=== PATIENT | male | born 1995 | race Caucasian/White ===

== ENCOUNTER 2016-05-28 13:33 | Emergency (ER) | payer SELFPAY ==
[~2016-05-28] VITALS: Ht 162.6 cm; Wt 63.5 kg
[~2016-05-28 13:33] MED LIST: CIPR500T4 PO; Z.0.NO CURRENT MEDS
[2016-05-28 13:35] VITALS: BP 137/71; PULSE 82; RESP 12; TEMP 98.1; O2SAT 98
--- NOTE | 2016-05-28 15:23 | PD ---
HPI Chief Complaint: Injury Time Seen by Provider: 15:15 Travel History International Travel<30 days: No Contact w/Intl Traveler<30days: No Traveled to known affect area: No History of Present Illness HPI Patient is a 20-year-old male presenting with left great toe injury. He states earlier this morning he was using a weed eater and a rock hit into his soft tissue and cause the toenail to rip. Pain is mild to moderate. Bleeding has stopped and he has some swelling underneath the toenail he states. He states the toenail is completely off. He denies weakness, paresthesia and inability to bear weight. He denies loss of range of motion. Last tetanus vaccine was less than 5 years. Of note the patient dropped a 80 pound log on the second toe x-ray one week ago but has been weightbearing. PFSH Past Medical History Diminished Hearing: No Immunizations Current: Yes Past Surgical History Other Surgery: Yes (MULTIPLE SURGERIES TO BACK 1 YR OLD FOR "INFECTION POCKET IN BACK") Social History Alcohol Use: Yes (OCC) Tobacco Use: Yes (1PPD) Allergies-Medications (Allergen,Severity, Reaction): Coded Allergies: No Known Allergies (Unverified , 05/28/16) Reported Meds & Prescriptions Reported Meds & Active Scripts Active Cipro (Ciprofloxacin HCl) 500 Mg Tab 500 Mg PO BID 14 Days Reported No Current Meds (Miscellaneous Medication) Misc Review of Systems General / Constitutional: No: Fever Musculoskeletal: Positive: Other (see the history of present illness) Skin: Positive Other (see the history of present illness) Neurologic: No: Weakness, Focal Abnormalities, Paresthesia, Sensory Disturbance Physical Exam Narrative GENERAL: Well-developed and well-nourished adult male in no acute distress. SKIN: Warm and dry. Good turgor without tenting. HEAD: Normocephalic and atraumatic. CARDIOVASCULAR: Regular rate and rhythm without murmurs, rubs, clicks or gallops. Dorsalis pedis and posterior tibial pulses 2+ bilaterally. Capillary refill less than 2 seconds distal tip of left great toe. RESPIRATORY: Clear to auscultation bilaterally with symmetrical rise and fall, no distress or use of accessory muscles. MUSCULOSKELETAL: Left great toe has injury to the lateral aspect of the nail, there is a subungual hematoma and the nail does appear to be loosely adhered laterally. No active bleeding. Patient has no range of motion in the toe, mildly tender. No gait disturbances. Patient freely moving all four extremities spontaneously. Extremities without clubbing or cyanosis. No obvious deformities. NEUROLOGIC: CN II-XII grossly intact. Awake and alert. Motor grossly within normal limits. Sensation intact distal tip of left great toe. Normal speech. PSYCHIATRIC: Appropriate mood and affect; insight and judgment normal. Data Data Last Documented VS Vital Signs Date Time Temp Pulse Resp B/P Pulse Ox O2 Delivery O2 Flow Rate FiO2 05/28/16 13:35 98.1 82 12 137/71 98 Room Air Orders Toe (Min 2vws) (05/28/16 15:21) Ice/Cold Pack (05/28/16 15:21) Bupivacaine Pf 0.5% Inj (Marcaine Pf 0.5 (05/28/16 15:30) Lidocaine 1% Inj (50 Ml) (Xylocaine 1% I (05/28/16 15:30) MDM Medical Decision Making Medical Screen Exam Complete: Yes Emergency Medical Condition: Yes Differential Diagnosis Toe fracture versus toe sprain versus toe contusion versus nailbed injury versus subungual hematoma Narrative Course Patient's 20-year-old male presenting with 2 great left toe injuries in the last week. One was early this morning. He did appear to suffer a nail bed injury at that time. Tetanus vaccine already up-to-date. I slating the patient that would need to perform a digital block to clean this and inspected further and likely repair the nail bed. Given he said to traumas to the area x- ray is also indicated which was ordered. Patient expressed mild disagreement with this but appeared to understand. While waiting for x-ray I noticed the patient was no longer in his room. Diagnosis Primary Impression: Left against medical advice Condition: Stable John Mcallister III May 28, 2016 15:23
[2016-05-28] MEDS ORDERED: LIDOCAINE HCL 1% 50 ML VIAL INFIL ONE (15:30)
[2016-05-28] MEDS ORDERED: BUPIVACAINE HCL PF 0.5% 10 ML VIAL INFIL ONE (15:30)
[2016-05-29] MEDS ORDERED: CEPH-460 PO (00:49)
[2016-05-29] MEDS ORDERED: HYDR-3533 PO (00:49)
== END 2016-05-28 17:35 | disposition left against medical advice (07) ==
LOC: NEPB 13:33
DX: M79.675 Pain in left toe(s) (principal); F17.200 Nicotine dependence, unspecified, uncomplicated; Z53.20 Procedure and treatment not carried out because of patient's decision for unspecified reasons
CPT/HCPCS: 99283

== ENCOUNTER 2016-05-28 21:39 | Emergency (ER) | payer SELFPAY ==
[~2016-05-28] VITALS: Ht 162.6 cm; Wt 63.0 kg
[2016-05-28 21:40] VITALS: BP 119/71; PULSE 72; RESP 14; TEMP 97.9; O2SAT 99
[2016-05-28] MEDS ORDERED: LIDOCAINE HCL 1% PF 30 ML VIAL INFIL ONE (23:15)
--- NOTE | 2016-05-28 23:26 | PD ---
HPI Chief Complaint: Injury Time Seen by Provider: 23:00 Travel History International Travel<30 days: No Contact w/Intl Traveler<30days: No Traveled to known affect area: No History of Present Illness HPI 20-year-old male presents for examination of left great toe injury. He reports that 1 week ago he dropped a log on his toe and injured his left great toe. He sustained a avulsion to his left great toenail at the root as well as some subungual hematoma formation. He has been walking on it since then and performing normal activities of daily living. It has been painful. Today this morning at around noon he injured his toe again in which she was using a weed eater and hit a rock into his shoe which reaggravated his left great toe. The patient was seen here about this issue several hours ago but he left AMA prior to receiving x-ray and digital block. He now returns to have the workup completed. Last tetanus vaccination within 5 years. No other complaints. PFSH Past Medical History Diminished Hearing: No Immunizations Current: Yes Past Surgical History Other Surgery: Yes (MULTIPLE SURGERIES TO BACK 1 YR OLD FOR "INFECTION POCKET IN BACK") Social History Alcohol Use: Yes (OCC) Tobacco Use: Yes (1PPD) Allergies-Medications (Allergen,Severity, Reaction): Coded Allergies: No Known Allergies (Unverified , 05/28/16) Reported Meds & Prescriptions Reported Meds & Active Scripts Active Keflex (Cephalexin) 500 Mg Cap 500 Mg PO Q8H 7 Days Lortab (Hydrocodone-Acetaminophen) 5-325 Mg Tab 1 Tab PO Q6H PRN Review of Systems Musculoskeletal: Positive: Pain Skin: Positive Other (subungual hematoma formation, pain) Physical Exam Narrative GENERAL: Well-developed well-nourished male in no acute distress SKIN: Warm and dry. CARDIOVASCULAR: Regular rate and rhythm. No murmur appreciated. RESPIRATORY: No accessory muscle use. Clear to auscultation. Breath sounds equal bilaterally. Extremities: Examination reveals subungual hematoma left great toe. The nail is avulsed at the root with a jagged portion of the nail sticking out at the root. The nail was quite loose on the nail bed. Data Data Last Documented VS Vital Signs Date Time Temp Pulse Resp B/P Pulse Ox O2 Delivery O2 Flow Rate FiO2 05/28/16 21:40 97.9 72 14 119/71 99 Room Air Orders Toe (Min 2vws) (05/28/16 ) Lidocaine Pf 1% Inj (Xylocaine-Mpf 1% In (05/28/16 23:15) Lidocaine Pf 1% Inj (Xylocaine-Mpf 1% In (05/29/16 00:45) Wound Care (05/29/16 00:56) Acetamin-Hydrocod 325-5 Mg ([place] 5-325 (05/29/16 01:00) Ondansetron Odt (Zofran Odt) (05/29/16 01:00) Cephalexin (Keflex) (05/29/16 01:00) MDM Medical Decision Making Medical Screen Exam Complete: Yes Emergency Medical Condition: Yes Medical Record Reviewed: Yes Interpretation(s) FINDINGS: Normal bone density. There is a subtle nondisplaced fracture of the first distal phalangeal tuft identified. Mild soft tissue swelling. Differential Diagnosis Toenail avulsion, subungual hematoma, old nail bed laceration, toe fracture Narrative Course 20-year-old male injured his left great toe 1 week ago dropping a log on it. He sustained a partial toenail avulsion and subungual hematoma. He reaggravated today when a rock hit his shoe. Examination reveals that the toenail has been lifted off of the nail bed secondary to a subungual hematoma one week ago. The plan is for x-ray. Digital block with will be performed and the toenail will be removed. X-ray imaging reveals subtle nondisplaced fracture. The nail was removed successfully. There was some subungual bleeding as well as mild bleeding currently with some damage and generalized oozing from the underlying nailbed but no repairable wound. Local wound care provided. The patient will be discharged with prescription antibiotics and pain medication. Discussed signs and symptoms of infection noted work returning to the emergency room. Procedures Procedure Narrative Toenail removal: The left great toe is prepped with Betadine. Digital block was performed utilizing 1% lidocaine. The toenail was lifted off of the nail bed utilizing blunt dissection. There was some generalized oozing of blood. The patient tolerated procedure well. Diagnosis Primary Impression: Toe fracture, left Qualified Code: S92.425A - Closed nondisplaced fracture of distal phalanx of left great toe, initial encounter Additional Impressions: Toenail avulsion Qualified Code: S91.209A - Toenail avulsion, initial encounter Subungual hematoma of toe of left foot Qualified Code: S90.222A - Subungual hematoma of toe of left foot, initial encounter Additional Instructions: Wash the area gently with soap and water and apply antibiotic cream and clean bandages daily. Take the medication as prescribed. Monitor for any signs of infection such as increasing redness around the wound, red streaks up the leg, fevers which would warrant return to the emergency room. Otherwise follow-up with primary care physician in one week. The nail will grow back over the course of the next 12-18 months. Med/Other Pt SpecificInfo: Prescription(s) given, Wound Care Scripts Cephalexin (Keflex)500 Mg [id number] Mg PO Q8H 7 Days Ref 0 Prov:Howie Redding MD 05/29/16 Hydrocodone-Acetaminophen (Lortab)5-325 Mg Tab1 Tab PO Q6H PRN (PAIN) #20 TAB Ref 0 Prov:Howie Redding MD 05/29/16 Disposition: 01 DISCHARGE HOME Condition: Stable Kyle Graves May 28, 2016 23:26
--- NOTE | 2016-05-28 23:57 | RADRPT ---
EXAM DATE/TIME: 05/28/2016 23:36 [facility] COMPARISON: No previous studies available for comparison. INDICATIONS : Patient complains of great toe pain, left foot, after dropping log onto foot earlier today. Pain in t uft of 1st digit. MEDICAL HISTORY : None. SURGICAL HISTORY : None. ENCOUNTER: Initial ACUITY: 1 day PAIN SCORE: 9/10 LOCATION: Left Foot, great toe. FINDINGS: Normal bone density. There is a subtle nondisplaced fracture of the first distal phalangeal tuft iden tified. Mild soft tissue swelling. CONCLUSION: First distal phalanx fracture. Jean-Claude Mccann MD on May 28, 2016 at 23:55 Board Certified Radiologist. This report was verified electronically.
[2016-05-29] MEDS ORDERED: LIDOCAINE HCL 1% PF 30 ML VIAL INFIL ONE (00:45)
[2016-05-29] MEDS ORDERED: HYDR-3533 PO (00:49)
[2016-05-29] MEDS ORDERED: CEPH-460 PO (00:49)
[2016-05-29] MEDS ORDERED: CEPHALEXIN MONOHYDRATE 500 MG CAP PO ONE (01:00)
[2016-05-29] MEDS ORDERED: ACETAMINOPHEN/HYDROcodone 325 MG/5 MG TAB PO ONE (01:00)
[2016-05-29] MEDS ORDERED: ONDANSETRON ODT 4 MG TAB PO ONE (01:00)
== END 2016-05-29 01:13 | disposition home or self-care (01) ==
LOC: NEPB 21:39
DX: S92.425A Nondisplaced fracture of distal phalanx of left great toe, initial encounter for closed fracture (principal); S91.209A Unspecified open wound of unspecified toe(s) with damage to nail, initial encounter; S90.222A Contusion of left lesser toe(s) with damage to nail, initial encounter; F17.200 Nicotine dependence, unspecified, uncomplicated; W20.8XXA Other cause of strike by thrown, projected or falling object, initial encounter
CPT/HCPCS: 11730; 73660

== ENCOUNTER 2017-06-30 00:26 | Emergency (ER) | payer SELFPAY ==
[~2017-06-30] VITALS: Ht 162.6 cm; Wt 52.0 kg
[~2017-06-30 00:26] MED LIST changes: +CEPH-460 PO; -CIPR500T4 PO; +HYDR-3533 PO; -Z.0.NO CURRENT MEDS
[2017-06-30 00:33] VITALS: BP 140/87; PULSE 77; RESP 20; TEMP 97.8; O2SAT 99
[2017-06-30 00:55] VITALS: RESP 18; O2SAT 99
[2017-06-30 01:16] LABS: AUTOMATED NEUTROPHIL # 10.9 TH/MM3 (1.8-7.7); BASOPHIL # 0.3 TH/MM3 (0-0.2); BASOPHIL % 2.5 % (0.0-2.0); EOSINOPHIL # 0.2 TH/MM3 (0-0.4); EOSINOPHIL % 1.4 % (0.0-4.0); HEMOGLOBIN 16.3 GM/DL (13.0-17.0); LYMPHOCYTE # 1.2 TH/MM3 (1.0-4.8); MEAN CELL VOLUME 86.8 FL (80.0-100.0); MEAN CORPUSCULAR HEMOGLOBIN 30.2 PG (27.0-34.0); MEAN CORPUSCULAR HGB CONC 34.8 % (32.0-36.0); MEAN PLATELET VOLUME 8.9 FL (7.0-11.0); MONO % 7.7 % (0.0-8.0); MONOCYTE # 1.1 TH/MM3 (0-0.9); NEUT % 79.4 % (16.0-70.0); PLATELET COUNT 216 TH/MM3 (150-450); RED BLOOD COUNT 5.41 MIL/MM3 (4.50-5.90); RED CELL DISTRIBUTION WIDTH 13.1 % (11.6-17.2); WHITE BLOOD COUNT 13.7 TH/MM3 (4.0-11.0)
[2017-06-30 01:23] LABS: CHLORIDE 103 MEQ/L (98-107); SODIUM (NA) 138 MEQ/L (136-145)
[2017-06-30 01:26] LABS: CALCIUM 8.7 MG/DL (8.5-10.1)
[2017-06-30 01:27] LABS: ALBUMIN 4.2 GM/DL (3.4-5.0); BICARBONATE 26.7 MEQ/L (21.0-32.0); BLOOD UREA NITROGEN 20 MG/DL (7-18); GLUCOSE,RANDOM 98 MG/DL (74-106)
[2017-06-30 01:30] LABS: ALT (GPT) 19 U/L (12-78); AST (GOT) 20 U/L (15-37); CREATININE 0.91 MG/DL (0.60-1.30); GLOMERULAR FILTRATION RATE 102 ML/MIN (>89)
[2017-06-30 01:32] LABS: TOTAL BILIRUBIN ADULT 0.8 MG/DL (0.2-1.0); TOTAL PROTEIN 7.8 GM/DL (6.4-8.2)
[2017-06-30 01:33] LABS: ALKALINE PHOSPHATASE 94 U/L (45-117)
[2017-06-30 02:30] VITALS: BP 138/78; PULSE 74; RESP 18; O2SAT 99
[2017-06-30 03:01] LABS: BILIRUBIN, URINE NEG (NEG); BLOOD, URINE TRACE (NEG); GLUCOSE,URINE NEG (NEG); KETONE, URINE 40 mg/dL (NEG); NITRITE,URINE NEG (NEG); URINE LEUKOCYTE ESTERASE NEG (NEG)
[2017-06-30 03:19] LABS: URINE COLOR YELLOW (YELLW/STRAW)
[2017-06-30 03:20] LABS: AMORPHOUS SEDIMENT, URINE LARGE; MUCUS URINE MOD /lpf (OCC); RBC, URINE 0-3 /hpf (0-3)
[2017-06-30 03:21] LABS: SQUAMOUS EPITHELIAL CELL URINE 0-5 /hpf (0-5)
== END 2017-06-30 02:38 | disposition left against medical advice (07) ==
LOC: PHED 00:26
DX: Z53.21 Procedure and treatment not carried out due to patient leaving prior to being seen by health care provider (principal)
CPT/HCPCS: 80053; 81001; 83690; 85025; 99281

== ENCOUNTER 2017-10-06 07:24 | Emergency (ER) | payer SELFPAY ==
[~2017-10-06] VITALS: Ht 165.1 cm; Wt 63.5 kg
[2017-10-06 07:32] VITALS: PULSE 56; RESP 22; TEMP 96.2; O2SAT 98
[2017-10-06 07:40] VITALS: BP 135/79; PULSE 54; RESP 24; O2SAT 100
--- NOTE | 2017-10-06 07:56 | PD ---
HPI Chief Complaint: GI Complaint Time Seen by Provider: 07:45 Travel History International Travel<30 days: No Contact w/Intl Traveler<30days: No Traveled to known affect area: No History of Present Illness HPI This patient complains of pain in his right side and right lower quadrant. Duration 45 minutes. The pain is severe. He arrives writhing in pain. He has history of kidney stone. Denies other medical problems. No alleviating factors. No exacerbating factors. No injury. No vomiting or diarrhea. PFSH Past Medical History Diminished Hearing: No Immunizations Current: Yes Past Surgical History Other Surgery: Yes (MULTIPLE SURGERIES TO BACK 1 YR OLD FOR "INFECTION POCKET IN BACK") Social History Alcohol Use: Yes (OCC) Tobacco Use: Yes (1PPD) Substance Use: No Allergies-Medications (Allergen,Severity, Reaction): Coded Allergies: No Known Allergies (Unverified Adverse Reaction, Unknown, 06/30/17) Reported Meds & Prescriptions Reported Meds & Active Scripts Active No Active Prescriptions or Reported Medications Review of Systems General / Constitutional: No: Fever Eyes: No: Visual changes HENT: No: Headaches Cardiovascular: No: Chest Pain or Discomfort Respiratory: No: Shortness of Breath Gastrointestinal: Positive: Abdominal Pain Genitourinary: Positive: Flank Pain, No: Dysuria Musculoskeletal: No: Pain Skin: No Rash Neurologic: No: Weakness Psychiatric: No: Depression Endocrine: No: Polydipsia Hematologic/Lymphatic: No: Easy Bruising Physical Exam Narrative GENERAL: Well-nourished, well-developed patient with severe right sided abdominal pain . SKIN: Focused skin assessment reveals no rash and nodules. Skin is Warm and dry. HEAD: Atraumatic. Normocephalic. EYES: Pupils equal and round. No scleral icterus. No injection or drainage. ENT: No nasal bleeding or discharge. Mucous membranes pink and moist. NECK: Trachea midline. No JVD. CARDIOVASCULAR: Regular rate and rhythm. No murmur appreciated. RESPIRATORY: No accessory muscle use. Clear to auscultation. Breath sounds equal bilaterally. GASTROINTESTINAL: Abdomen soft, non-tender, nondistended. Hepatic and splenic margins not palpable. MUSCULOSKELETAL: No obvious deformities. No clubbing. No cyanosis. No edema. NEUROLOGICAL: Awake and alert. No obvious cranial nerve deficits. Motor grossly within normal limits. Normal speech. PSYCHIATRIC: Appropriate mood and affect; insight and judgment normal. Data Data Last Documented VS Vital Signs Date Time Temp Pulse Resp B/P (MAP) Pulse Ox O2 Delivery O2 Flow Rate FiO2 10/06/17 07:40 54 24 135/79 (97) 100 Room Air 10/06/17 07:32 96.2 Orders Orders Complete Blood Count With Diff (10/06/17 07:49) Basic Metabolic Panel (Bmp) (10/06/17 07:49) Urinalysis - C+S If Indicated (10/06/17 07:49) Ct Abd/Pel W/O Iv Contrast (10/06/17 07:49) Iv Access Insert/Monitor (10/06/17 07:49) Ketorolac Inj (Toradol Inj) (10/06/17 08:00) Sodium Chloride 0.9% Flush (Ns Flush) (10/06/17 08:00) Hydromorphone Pf Inj (Dilaudid Pf Inj) (10/06/17 08:00) Prochlorperazine Inj (Compazine Inj) (10/06/17 08:00) Hydromorphone Pf Inj (Dilaudid Pf Inj) (10/06/17 07:57) Urine Culture (10/06/17 07:55) Labs Laboratory Tests Test 10/06/17 07:55 White Blood Count 8.8 TH/MM3 Red Blood Count 5.34 MIL/MM3 Hemoglobin 16.0 GM/DL Hematocrit 46.7 % Mean Corpuscular Volume 87.5 FL Mean Corpuscular Hemoglobin 29.9 PG Mean Corpuscular Hemoglobin Concent 34.2 % Red Cell Distribution Width 13.9 % Platelet Count 218 TH/MM3 Mean Platelet Volume 9.7 FL Neutrophils (%) (Auto) 60.6 % Lymphocytes (%) (Auto) 27.1 % Monocytes (%) (Auto) 8.6 % Eosinophils (%) (Auto) 2.6 % Basophils (%) (Auto) 1.1 % Neutrophils # (Auto) 5.3 TH/MM3 Lymphocytes # (Auto) 2.4 TH/MM3 Monocytes # (Auto) 0.8 TH/MM3 Eosinophils # (Auto) 0.2 TH/MM3 Basophils # (Auto) 0.1 TH/MM3 CBC Comment DIFF FINAL Differential Comment Urine Color YELLOW Urine Turbidity CLEAR Urine pH 6.0 Urine Specific [place] 1.028 Urine Protein 100 mg/dL Urine Glucose (UA) NEG mg/dL Urine Ketones NEG mg/dL Urine Occult Blood MOD Urine Nitrite NEG Urine Bilirubin NEG Urine Urobilinogen 0.2 MG/DL Urine Leukocyte Esterase NEG Urine RBC /hpf Urine WBC 9 /hpf Urine Bacteria FEW /hpf Urine Mucus MANY /lpf Microscopic Urinalysis Comment CULTURE INDICATED Blood Urea Nitrogen 13 MG/DL Creatinine 1.13 MG/DL Random Glucose 145 MG/DL Calcium Level 9.1 MG/DL Sodium Level 140 MEQ/L Potassium Level 3.7 MEQ/L Chloride Level 110 MEQ/L Carbon Dioxide Level 18.7 MEQ/L Anion Gap 11 MEQ/L Estimat Glomerular Filtration Rate 80 ML/MIN MDM Medical Decision Making Medical Screen Exam Complete: Yes Emergency Medical Condition: Yes Medical Record Reviewed: Yes Differential Diagnosis Kidney stone, appendicitis, colitis Narrative Course I have reviewed the patient's electronic medical record. Patient was found to have a 2 mm nonobstructing stone in 2012, I reviewed his CT scan IV placed and labs sent Gave him a dose of Dilaudid and Compazine and Toradol CT of abdomen and pelvis shows no stone currently. There is a tiny speck calcification of unclear significance but I feel this is an incidental finding most likely Urinalysis shows hematuria without infection On recheck the patient feels fine he is up walking around and feeling well. He spontaneously urinates without difficulty I think likely he had a kidney stone but passed it before the CT was taken. In any event he is stable for outpatient family physician and/or urology follow- up Diagnosis Primary Impression: Acute flank pain Additional Impression: Hematuria Qualified Codes: R31.9 - Hematuria, unspecified Additional Instructions: The patient was advised to follow up with their physician and return if they worsen. Med/Other Pt SpecificInfo: Other Scripts No Active Prescriptions or Reported Meds Disposition: 01 DISCHARGE HOME Condition: Stable Bowen Guzman MD Oct 06, 2017 07:56
[2017-10-06] MEDS ORDERED: HYDROmorphone HCL PF 2 MG/ML VIAL ONE (07:57)
[2017-10-06] MEDS ORDERED: HYDROmorphone HCL PF 1 MG/ML VIAL IV PUSH ONE (08:00)
[2017-10-06] MEDS ORDERED: KETOROLAC TROMETHAMINE 30 MG/ML (IVP) VIAL IV PUSH ONE (08:00)
[2017-10-06] MEDS ORDERED: PROCHLORPERAZINE INJ 10 MG/2 ML VIAL IV PUSH ONE (08:00)
[2017-10-06] MEDS ORDERED: SODIUM CHLORIDE 0.9% FLUSH 10 ML FLUSH IVF PRN (08:00)
[2017-10-06 08:21] LABS: AUTOMATED NEUTROPHIL # 5.3 TH/MM3 (1.8-7.7); BASOPHIL # 0.1 TH/MM3 (0-0.2); BASOPHIL % 1.1 % (0.0-2.0); EOSINOPHIL # 0.2 TH/MM3 (0-0.4); EOSINOPHIL % 2.6 % (0.0-4.0); HEMATOCRIT 46.7 % (39.0-51.0); LYMPH % 27.1 % (9.0-44.0); LYMPHOCYTE # 2.4 TH/MM3 (1.0-4.8); MEAN CELL VOLUME 87.5 FL (80.0-100.0); MEAN CORPUSCULAR HEMOGLOBIN 29.9 PG (27.0-34.0); MEAN CORPUSCULAR HGB CONC 34.2 % (32.0-36.0); MEAN PLATELET VOLUME 9.7 FL (7.0-11.0); MONO % 8.6 % (0.0-8.0); MONOCYTE # 0.8 TH/MM3 (0-0.9); NEUT % 60.6 % (16.0-70.0); PLATELET COUNT 218 TH/MM3 (150-450); RED BLOOD COUNT 5.34 MIL/MM3 (4.50-5.90); RED CELL DISTRIBUTION WIDTH 13.9 % (11.6-17.2); WHITE BLOOD COUNT 8.8 TH/MM3 (4.0-11.0)
[2017-10-06 08:38] LABS: BICARBONATE 18.7 MEQ/L (21.0-32.0); CALCIUM 9.1 MG/DL (8.5-10.1); CREATININE 1.13 MG/DL (0.60-1.30)
[2017-10-06 08:48] LABS: BLOOD, URINE MOD (NEG); GLUCOSE,URINE NEG (NEG); KETONE, URINE NEG (NEG); NITRITE,URINE NEG (NEG); URINE COLOR YELLOW (YELLW/STRAW); URINE LEUKOCYTE ESTERASE NEG (NEG)
[2017-10-06 08:58] LABS: BACTERIA, URINE FEW /hpf; MUCUS URINE MANY /lpf (OCC)
[2017-10-06 09:04] LABS: BILIRUBIN, URINE NEG (NEG)
--- NOTE | 2017-10-06 09:25 | RADRPT ---
EXAM DATE: 10/06/2017 8:56 AM EDT AGE/SEX: 22 years / Male INDICATIONS: Right flank and right lower quadrant pain. CLINICAL DATA: This is the patient's initial encounter. Patient reports that signs and symptoms have been present for 1 day and indicates a pain score of 8/10. MEDICAL/SURGICAL HISTORY: Renal calculi. . Back surgery as a child. RADIATION DOSE: 3.26 CTDI (mGy) COMPARISON: No prior [place] exams available for comparison. TECHNIQUE: Multiple contiguous axial images were obtained through the abdomen. Images were obtained using multiple row detector helical technique. Using dose reduction techniques, radiation dose was ke pt as low as reasonably achievable to obtain optimal diagnostic quality images. FINDINGS: Lower Lungs: The visualized lower lungs are clear. Liver: The liver has a homogeneous density without space-occupying lesion. There is no dilation of th e biliary tree. Spleen: Homogeneous density without enlargement. Pancreas: Unremarkable without mass or calcification. Kidneys: Normal in size and shape. No evidence of mass or hydronephrosis. Adrenal Glands: Unremarkable. Aorta: The aorta and proximal iliac vessels are grossly unremarkable without aneurysmal dilation. Bowel/Mesentery: The bowel loops are grossly unremarkable. The cecum and sigmoid colon have a normal configuration. Abdominal Wall: Intact. Retroperitoneum: No evidence of adenopathy in the retrocrural, para-aortic, or deep pelvic regions. Bladder: There is a miniscule potentially 2 mm calcification adjacent to the right bladder base, pot entially in the region of the distal ureter which itself is not clearly seen. I doubt this is a dista l ureteral stone, however that possibility is not entirely excluded. Reproductive Organs: No abnormal masses or calcifications seen. Inguinal: The inguinal region is unremarkable without evidence of adenopathy. Bony Structures: Unremarkable. CONCLUSION: 1. No evidence of kidney stone or hydronephrosis. 2. Miniscule right pelvic calcification, not clearly within distal ureter 3. Otherwise focally unremarkable noncontrast CT appearance. Electronically signed by: John Mace MD 10/06/2017 9:23 AM EDT
== END 2017-10-06 11:15 | disposition home or self-care (01) ==
LOC: NEPE 07:24
DX: R10.31 Right lower quadrant pain (principal); R31.9 Hematuria, unspecified; F17.200 Nicotine dependence, unspecified, uncomplicated
CPT/HCPCS: 74176; 80048; 81001; 85025; 87086; 96374; 96375; 99284; J0780; J1170; J1885